=== PATIENT | female | born 1970 | race Caucasian/White ===

== ENCOUNTER → 2020-11-08 | Outpatient (CLI) | payer MEDICARE, OTHER ==
[~2020-11-08] MED LIST: ASPIRIN81 MG PO; CYCLOBENZAPRINE10 MG PO; IBU800 MG PO; IBUPROFEN600 MG PO; IBUPROFEN800 MG PO; NEURONTIN 400400 MG PO; PERCOCET 5-3251 EACH PO; PROTONIX40 MG PO; SEROQUEL100 MG PO; SYNTHROID50 MCG PO
== END ==
LOC: NM 13:00
DX: R11.0 Nausea (principal); R93.3 Abnormal findings on diagnostic imaging of other parts of digestive tract
CPT/HCPCS: 78264; A9541

== ENCOUNTER 2020-11-13 17:14 | Emergency (ER) | payer MEDICARE, OTHER ==
[~2020-11-13 17:14] MED LIST changes: -CYCLOBENZAPRINE10 MG PO
[2020-11-13] MEDS ORDERED: IBUPROFEN800 MG PO (20:16)
[2020-11-13] MEDS ORDERED: CYCLOBENZAPRINE10 MG PO (20:16)
== END 2020-11-13 20:51 | disposition home or self-care (01) ==
LOC: ER1 17:14
DX: M51.36 Other intervertebral disc degeneration, lumbar region (principal); M48.061 Spinal stenosis, lumbar region without neurogenic claudication; M51.26 Other intervertebral disc displacement, lumbar region; F17.210 Nicotine dependence, cigarettes, uncomplicated; Z98.890 Other specified postprocedural states
CPT/HCPCS: 72131; 96372; 99283; J1100; J2270

== ENCOUNTER 2021-03-10 19:51 | Emergency (ER) | payer MEDICARE, OTHER ==
[~2021-03-10 19:51] MED LIST changes: +CYCLOBENZAPRINE10 MG PO
[2021-03-10 20:45] LABS: HEMOGLOBIN 13.2 gm/dl (12.3-15.3); RED BLOOD COUNT 4.06 M/UL (4.00-5.10)
[2021-03-10 20:59] LABS: BUN/CREATININE RATIO 21 (0-10)
[2021-03-11] MEDS ORDERED: PROTONIX40 MG PO (01:01)
== END 2021-03-11 01:19 | disposition home or self-care (01) ==
LOC: ER1 19:51
PROVIDERS: Emergency Medicine
DX: R10.13 Epigastric pain (principal); R07.89 Other chest pain; E78.5 Hyperlipidemia, unspecified; E03.9 Hypothyroidism, unspecified; K21.9 Gastro-esophageal reflux disease without esophagitis; F17.200 Nicotine dependence, unspecified, uncomplicated; Z90.49 Acquired absence of other specified parts of digestive tract; Z90.710 Acquired absence of both cervix and uterus; Z79.899 Other long term (current) drug therapy
CPT/HCPCS: 71045; 80053; 81001; 82550; 82553; 83690; 83874; 84484; 85025; 85379; 85610; 93005; 96374; 96375; 99285; C9113; J2060

== ENCOUNTER → 2021-04-05 | Outpatient (CLI) | payer MEDICARE, OTHER ==
[2021-04-06 16:12] LABS: ENDOMYSIAL ANTIBODY IGA Negative (Negative); IMMUNOGLOBULIN A, QN, SERUM 175 mg/dL (87-352); T-TRANSGLUTAMINASE (TTG) IGA <2 U/mL (0-3)
== END ==
LOC: CT 14:00
PROVIDERS: Physician Assistant Surgical
DX: R10.13 Epigastric pain (principal); K82.8 Other specified diseases of gallbladder
CPT/HCPCS: 36415; 74160; 82565; 82784; 84520; Q9963

== ENCOUNTER → 2021-05-04 | Outpatient (CLI) | payer MEDICARE, OTHER ==
[2021-05-05 16:14] LABS: ENDOMYSIAL ANTIBODY IGA Negative (Negative); IMMUNOGLOBULIN A, QN, SERUM 168 mg/dL (87-352); T-TRANSGLUTAMINASE (TTG) IGA <2 U/mL (0-3)
== END ==
LOC: LAB 15:41
PROVIDERS: Internal Medicine
DX: R10.13 Epigastric pain (principal); R11.0 Nausea; R80.9 Proteinuria, unspecified; E53.8 Deficiency of other specified B group vitamins
CPT/HCPCS: 36415; 82570; 82607; 82784; 83921; 84156

== ENCOUNTER → 2022-01-15 | Outpatient (CLI) | payer MEDICARE, OTHER | LOC: RT 16:18 | DX: R11.2 Nausea with vomiting, unspecified (principal) | CPT/HCPCS: 93005 ==

== ENCOUNTER → 2022-06-04 | Outpatient (CLI) | payer MEDICARE, OTHER | LOC: KOH-I 16:23 | DX: R07.82 Intercostal pain (principal); R06.02 Shortness of breath | CPT/HCPCS: 71045; 71101 ==